=== PATIENT | male | born 1975 ===

== ENCOUNTER 2020-01-23 11:37 | Emergency (ER) | payer BC, OTHER ==
[2020-01-23] MEDS ORDERED: Tetan/Diph/Pertus SYR(Tdap)* 0.5 ML SYR(BOOSTRIX) use SYR contains LATEX IM ONE (12:08)
--- NOTE | 2020-01-23 12:14 | ED ---
Lower Extremity - HPI Summary HPI Summary: 44-year-old male presents to the emergency department today with a chief complaint of right knee pain after possibly twisting his knee after being spurred by his rooster yesterday evening. Patient has 2 puncture wounds noted to the right knee one being anterior between the patella and tibial plateau and the other being a lateral to the knee. Patient has decreased range of motion due to pain however he is able to bend the knee and ambulate. Patient denies fevers. Patient has no obvious deformity although there is mild amount of edema and erythema noted to the right knee. Patient has increased pain with bending the knee and his pain is improved with rest. Patient is otherwise well and denies fevers, chest and abdominal pain, shortness breath, vomiting, diarrhea. - History of Current Complaint Chief Complaint: EDExtremityLower Stated Complaint: INJURY TO KNEE PER PT Hx Obtained From: Patient Mechanism Of Injury: Direct Blow, Twisted Onset of Pain: Immediate Onset/Duration: Hours Severity Initially: Severe Severity Currently: Severe Pain Intensity: 8 Pain Scale Used: 0-10 Numeric Location: Is Discrete @ - Right knee Character Of Pain: Aching Associated Signs And Symptoms: Positive: Swelling, Redness, Knee Pain. Negative : Bruising, Fever Aggravating Factor(s): Standing, Ambulation, Movement, Weight Bearing, Stairs Alleviating Factor(s): Rest Able to Bear Weight: Yes - Allergies/Home Medications Allergies/Adverse Reactions: Allergies Allergy/AdvReac Type Severity Reaction Status Date / Time No Known Allergies Allergy Verified 01/23/20 11:41 Home Medications: Home Medications Cephalexin CAP* [Keflex CAP*] 500 mg PO QID #28 cap 01/23/20 [Rx] Lisinopril TAB* [Prinivil TAB*] 20 mg PO DAILY 01/23/20 [History Confirmed 01/22] Melatonin (NF) 5 mg PO BEDTIME PRN 01/23/20 [History Confirmed 01/23/20] PMH/Surg Hx/FS Hx/Imm Hx Infectious Disease History: No Infectious Disease History: Denies: Traveled Outside the [place] in Last 30 Days - Social History Alcohol Use: Occasionally Substance Use Type: Reports: None Smoking Status (MU): Never Smoked Tobacco Review of Systems Constitutional: Negative Eyes: Negative ENT: Negative Cardiovascular: Negative Respiratory: Negative Gastrointestinal: Negative Genitourinary: Negative Positive: Arthralgia, Myalgia, Decreased ROM, Edema Skin: Negative Neurological/Mental Status: Negative Psychological: Normal All Other Systems Reviewed And Are Negative: Yes Physical Exam - Summary Physical Exam Summary: Patient is in no acute distress. There is too noted puncture wounds to the right knee one being between the inferior aspect of the patella and the superior aspect of the tibial plateau while the other is lateral to the right knee. Patient has full passive range of motion however he has increased pain with active flexion of the right knee. Patient has increased pain with valgus and varus stress of the right knee. Negative anterior and posterior drawer. Negative Mc Parrish's test. Patient has increased pain with palpation of the medial joint line right knee. There is mild edema and erythema noted to the right knee. No purulent drainage is noted from 2 puncture wounds. Triage Information Reviewed: Yes Vital Signs On Initial Exam: Initial Vitals Temp Pulse Resp BP Pulse Ox 98.9 F 107 19 147/95 98 01/23/20 11:39 01/23/20 11:39 01/23/20 11:39 01/23/20 11:39 01/23/20 11:39 Vital Signs Reviewed: Yes Appearance: Positive: Well-Appearing, No Pain Distress, Well-Nourished Skin: Positive: Warm, Skin Color Reflects Adequate Perfusion Eyes: Positive: EOMI, OUMOU ENT: Positive: Hearing grossly normal Respiratory/Lung Sounds: Positive: Clear to Auscultation, Breath Sounds Present Cardiovascular: Positive: RRR, S1, S2 Neurological: Positive: Sensory/Motor Intact, Alert, Oriented to Person Place, Time, Facial Symmetry, Speech Normal Psychiatric: Positive: Normal, Affect/Mood Appropriate AVPU Assessment: Alert Procedures - Sedation Patient Received Moderate/Deep Sedation with Procedure: No Diagnostics - Vital Signs Vital Signs Temp Pulse Resp BP Pulse Ox 01/23/20 11:39 98.9 F 107 19 147/95 98 - Laboratory Result Diagrams: 01/23/20 13:20 01/23/20 13:20 Lab Statement: Any lab studies that have been ordered have been reviewed, and results considered in the medical decision making process. Lower Extremity Course/Dx - Course Course Of Treatment: Patient was evaluated in the emergency department today for right knee pain with multiple puncture wound from Rooster. Vitals noted stable. Patient afebrile. Patient's tetanus was updated. Physical exam showed pain with palpation of the right knee with mild erythema and swelling. X -ray was done which showed no acute osseous injury. Patient's right knee injury appeared to be a stable ligamentous or muscular injury which did not require intervention at this time. Laboratory studies were done to exclude septic joint.Labs returned showing mild acidosis of a white blood for count 11.5. CRP is mildly elevated at 16, ESR within normal limits at 1. No evidence of anemia. There is no significant electrolyte disturbance. Patient' s physical exam was not extremely impressive for septic joint however due to the location of his puncture wound and his mildly elevated white cell count was CRP patient was given 1 dose of Keflex in the emergency department. Orthopedic doctor, Dr. Cohen was consulted who requested to see him in her office for morning at 8 AM. An appointment was made and patient agreed to this plan. - Diagnoses Differential Diagnosis/HQI/PQRI: Positive: Arthritis, Fracture (Closed), Infection, Sprain, Strain Provider Diagnoses: Right knee pain - Critical Care Time Critical Care Statement: Critical care time is provided exclusive of any time spent performing procedures. Discharge ED - Sign-Out/Discharge Documenting (check all that apply): Patient Departure - Discharge Plan Condition: Stable Disposition: HOME Prescriptions: Cephalexin CAP* [Keflex CAP*] 500 mg PO QID #28 cap Patient Education Materials: Knee Pain (ED) Referrals: Sultana Cohen MD [Medical Doctor] - 1 Day Additional Instructions: Please take ibuprofen 600 mg every 6 hours as needed for pain. We have given you an Angus wrap which you may apply to your knee for comfort. We have made for you an appointment with orthopedic doctor, Dr. Cohen tomorrow morning at 8 AM. Please follow up with her for further evaluation and management. Please stop by the pharmacy and cook pickled meat your prescription and take as directed. Please return to this emergency department immediately should you develop any new or worsening symptoms such as inability to bend your knee and fever. - Billing Disposition and Condition Condition: STABLE Disposition: Home - Attestation Statements Provider Attestation: I was available for consultation for this patient. I did not evaluate the patient or participate in any medical decision making or disposition decisions unless I am specifically named in the chart as having consulted on the patient. If I have consulted on the patient, please see my own ED note on the patient encounter. Shivani Norwood MD
[2020-01-23 13:42] LABS: ABS Basophils 0.1 10^3/ul (0-0.2); ABS Eosinophils 0.3 10^3/ul (0-0.6); ABS Neutrophils 8.1 10^3/ul (1.5-7.7); Eosinophil % 2.8 %; Hematocrit 44 % (42-52); Hemoglobin 15.1 g/dL (14.0-18.0); Lymphocyte % 17.2 %; Mean Corpuscular HGB Conc 35 g/dL (31-36); Mean Corpuscular Hemoglobin 32 pg (27-31); Mean Corpuscular Volume 93 fL (80-94); Mean Platelet Volume 7.7 fL (7.4-10.4); Platelet Count 303 10^3/uL (150-450); Red Blood Count 4.71 10^6 /uL (4.18-5.48); Red Cell Distribution Width 14 % (10-15); White Blood Count 11.5 10^3/uL (3.5-10.8)
[2020-01-23 13:53] LABS: Albumin 4.3 g/dL (3.2-5.2); Albumin/Globulin Ratio 1.7 (1-3); C Reactive Protein 16.04 mg/L (<8.01); Calcium 9.2 mg/dL (8.6-10.3); EGFR Non-African American 87.6 (>60); Globulin 2.5 g/dL (2-4); Potassium 4.2 mmol/L (3.5-5.0); Total Bilirubin 0.9 mg/dL (0.2-1.0); Total Protein 6.8 g/dL (6.4-8.9)
[2020-01-23 15:28] LABS: Erythrocyte Sed Rate 1 mm/Hr (0-14)
[2020-01-23] MEDS ORDERED: Cephalexin CAP* 500 MG PO ONE (15:29)
[2020-01-23 16:21] VITALS: BP 138/85
== END 2020-01-23 16:19 | disposition home or self-care (01) ==
LOC: ED 11:37
DX: M25.561 Pain in right knee (principal); R60.9 Edema, unspecified; Z79.899 Other long term (current) drug therapy
CPT/HCPCS: 36415; 80053; 85025; 85652; 86140; 90471; 90715; 99282; A9270-GY